=== PATIENT | female | born 1980 | race American Indian/Alaskan Native ===

== ENCOUNTER 2018-06-06 09:42 | Inpatient (IN) | payer OTHER ==
[2018-06-06 10:42] VITALS: BMI 40.3
[2018-06-06] MEDS ORDERED: Lactated Ringer's 1,000 ML IV ONE (10:42)
[2018-06-06] MEDS ORDERED: Oxytocin 30 UNITS in Sodium Chloride 0.9% 500 ML IV ONE (10:59)
[2018-06-06] MEDS: Lactated Ringer's 1,000 ML IV SCH ×2 (11:00→15:07)
[2018-06-06] MEDS ORDERED: Oxytocin 30 units/LR 500ML 30 U/500 ML BAG IV ONE (11:16)
[2018-06-06 11:28] LABS: BASO % 0.4 % (0.0-2.0); EOS # 0.1 K/uL (0.0-0.7); EOS % 0.7 % (0.0-4.0); HEMOGLOBIN 8.9 g/dL (12.0-16.0); LYMPH # 1.4 K/uL (1.0-4.3); LYMPH % 18.6 % (20.0-40.0); MEAN CELL VOLUME 67.2 fl (81.0-99.0); MEAN CORPUSCULAR HEMOGLOBIN 21.3 pg (27.0-31.0); MEAN CORPUSCULAR HGB CONC 31.6 g/dL (33.0-37.0); MEAN PLATELET VOLUME 7.9 fl (7.2-11.7); MONO # 0.6 K/uL (0.0-0.8); MONO % 8.4 % (0.0-10.0); NEUT # 5.4 K/uL (1.8-7.0); NEUT % 71.9 % (50.0-75.0); NRBC % 0.1 % (0.0-0.0); RBC 4.2 Mil/uL (3.80-5.20); RED CELL DISTRIBUTION WIDTH 16.6 % (11.5-14.5); WHITE BLOOD COUNT 7.5 K/uL (4.8-10.8)
[2018-06-06] MEDS ORDERED: OXYTOCIN/0.9 % NS 20 UNIT/1,000 ML BAG IV SCH ×2 (11:30→21:46)
[2018-06-06] MEDS ORDERED: Fentanyl/Bupivacaine HCl 250 ML EPI ONE (14:34)
[2018-06-06] MEDS ORDERED: Bupivacaine HCl 0.5% PF (30 ml) Inj ONE (18:31)
--- NOTE | 2018-06-06 18:31 | OBPN ---
Datetime: 06/06/2018 18:27 IP Progress Impression: Normal progression of labor IP Informed Consent Obtain: Vaginal Delivery IP Procedures: Sterile Vag Exam IP Progress Plan: Continue present management Membranes, Provider: Ruptured Contraction Comments Provider: q 2 mins FHR - Baseline A Provider: 150 IP Progress Note Comment: Patient uncomfortable, s/p epidural VE= [id number] mod gómez, +accels, early decels. Pitocin @ 6 mu/min A/P 1. Patient feeling increased pressure with contractions, will contact anesthesia about top off. co ntinue pitocin for augmentation 2. CEFM and TOCO Vital Signs Provider: Reviewed; Within Normal Limits NICHD Variability Prov Fetus A: Moderate 6-25bpm Dilatation, Provider: 8 Effacement, Provider: 100 Station, Provider: 1 NICHD Decel Fetus A IP Provider: Early Datetime: 06/06/2018 10:31 Pool Provider: Positive Nitrazine Provider: Positive Amniotic Fluid Color, Provider: Clear Presentation-Admit: Vertex NICHD Accel Fetus A IP Provider: [id number] FHR Category Provider Fetus A: Category I
--- NOTE | 2018-06-06 19:13 | OBDS ---
DELIVERY PERSONNEL Delivery Doctor: Donis WendieLeatha MD MATERNAL INFORMATION Delivery Anesthesia: Epidural Provider Comments: of live female over intact perineum, OA followed by shoulders and res t of infant atraumatic, 07/18, mouth and nose suctioned, cord clamped and cut, cord blood obtained, lynn centa delivered spontaneously, fundus firm, [id number], 2nd degree laceration repaired with 2-0 vicryl rapide, pt tolerated procedure well LABOR SUMMARY EDC: 06/10/2018 00:00 No. Babies in Womb: 1 Attempted: No Labor Anesthesia: Epidural LABOR INFORMATION Reason for Induction: Not Applicable Onset of Labor: 06/06/2018 14:00 Oxytocin: Augmentation Group B Beta Strep: Negative Antibiotics # of Doses: na Antibiotics Time of Last Dose: na Steroids Given: None Reason Steroids Not Administered: Not Applicable MEMBRANES Membranes Rupture Method: Spontaneous Rupture of Membranes: 06/06/2018 08:00 Amniotic Fluid Color: Clear Amniotic Fluid Amount: Small Amniotic Fluid Odor: Normal IDENTIFICATION/MEDS BABY A ID Band Number: [id number]
[2018-06-06] MEDS ORDERED: Acetaminophen-Codeine 300/30 mg Tab PO PRN (19:16)
[2018-06-06] MEDS ORDERED: Oxycodone/Acetaminophen 5/325 mg Tab PO PRN ×4 (19:16→21:46)
[2018-06-06] MEDS ORDERED: Benzocaine/Menthol SPRAY TOP PRN ×2 (19:16→21:46)
[2018-06-07 07:23] LABS: BASO % 0.3 % (0.0-2.0); EOS # 0.1 K/uL (0.0-0.7); EOS % 0.9 % (0.0-4.0); HEMOGLOBIN 8.1 g/dL (12.0-16.0); LYMPH # 1.6 K/uL (1.0-4.3); MEAN CELL VOLUME 67.2 fl (81.0-99.0); MEAN CORPUSCULAR HEMOGLOBIN 21.7 pg (27.0-31.0); MEAN CORPUSCULAR HGB CONC 32.3 g/dL (33.0-37.0); MEAN PLATELET VOLUME 7.6 fl (7.2-11.7); MONO # 0.8 K/uL (0.0-0.8); MONO % 8.7 % (0.0-10.0); NEUT % 73.1 % (50.0-75.0); RBC 3.72 Mil/uL (3.80-5.20); RED CELL DISTRIBUTION WIDTH 16.6 % (11.5-14.5); WHITE BLOOD COUNT 9.6 K/uL (4.8-10.8)
[2018-06-07] MEDS ORDERED: Multivitamin With Minerals Tab PO SCH (09:00)
[2018-06-07] MEDS ORDERED: Benzocaine/Menthol SPRAY TOP PRN (10:04)
[2018-06-07] MEDS: Multivitamin With Minerals Tab PO SCH (10:49)
--- NOTE | 2018-06-08 07:17 | OBPPN ---
Datetime: 06/07/2018 09:13 PP Pain Prov: Within normal limits PP Nausea Prov: Denies PP Flatus Prov: Yes PP Breasts Prov: Normal PP Heart Prov: Normal PP Lungs Prov: Normal PP Abdomen/Uterus Prov: Normal PP Extremities Prov: Normal PP Progress Prov: Normal PP Impression Prov: Normal progression PP Plan Prov: Continue present management PP Progress Note Prov: s: no c/o. pain controlled w/ meds. + i: s/p doing well anemia hgb 8.1 p: routine pp care d/c home on Fe planning on btl for contracept IP PP Procedures: None Vital Signs Provider PP: Within Normal Limits
--- NOTE | 2018-06-08 07:37 | OBDCSUM ---
Datetime: 06/08/2018 07:36 Discharged to, Provider: Home Follow up at, Provider: Dr. Barron Disch Instr Activity: Normal activity; May Shower Disch Instr Diet: Regular Discharge Instructions, Provider: Routine instructions given Discharge Diagnosis, Provider: Term Delivered Discharge Time: 06/08/2018 07:36 Follow up in weeks, Provider: 6 weeks Contraception discussed, Prov: No Disch Activity Restrictions: No exercising; No lifting; No sexual activity; Nothing in vagina - Inte rcourse, tampons, douche
--- NOTE | 2018-06-08 07:37 | OBPPN ---
Datetime: 06/08/2018 07:32 PP Pain Prov: Within normal limits PP Abdomen/Uterus Prov: Normal PP Lochia Prov: Normal PP Extremities Prov: Normal PP Progress Prov: Normal PP Impression Prov: Normal progression PP Plan Prov: Discharge PP Progress Note Prov: PPD 2 s/p , doing well, breast feeding Rx motrin given Rec OTC Slow Fe Discharge home today Vital Signs Provider PP: Reviewed
[2018-06-08] MEDS: Multivitamin With Minerals Tab PO SCH (08:29)
[2018-06-08 18:08] VITALS: BP 123/61; PULSE 84; RESP 18; TEMP 98.2; O2SAT 100
== END 2018-06-08 12:35 | disposition home or self-care (01) | DRG 775 ==
LOC: H.EROB2 09:42 → H.L&D 10:42 → H.OB/GYN 22:09
PROVIDERS: ADMIT Obstetrics & Gynecology; ATTEND Obstetrics & Gynecology
PROC: 10E0XZZ Delivery of Products of Conception, External Approach (ICD-10-PCS; principal; 2018-06-06)
PROC: 0KQM0ZZ Repair Perineum Muscle, Open Approach (ICD-10-PCS; 2018-06-06)
PROC: 4A1HXCZ Monitoring of Products of Conception, Cardiac Rate, External Approach (ICD-10-PCS; 2018-06-06)
DX: O70.1 Second degree perineal laceration during delivery (principal); O09.523 Supervision of elderly multigravida, third trimester; Z37.0 Single live birth; Z3A.39 39 weeks gestation of pregnancy

== ENCOUNTER 2018-06-14 21:57 | Emergency (ER) | payer OTHER ==
[2018-06-14 21:57] VITALS: BMI 40.3
[2018-06-14 22:15] VITALS: TEMP 98.5
[2018-06-14 23:33] LABS: BASO # 0.1 K/uL (0.0-0.2); BASO % 1.1 % (0.0-2.0); EOS # 0.1 K/uL (0.0-0.7); EOS % 1.3 % (0.0-4.0); HEMOGLOBIN 9.8 g/dL (12.0-16.0); LYMPH # 1.4 K/uL (1.0-4.3); LYMPH % 21.4 % (20.0-40.0); MEAN CORPUSCULAR HEMOGLOBIN 20.9 pg (27.0-31.0); MEAN CORPUSCULAR HGB CONC 30.8 g/dL (33.0-37.0); MEAN PLATELET VOLUME 7.7 fl (7.2-11.7); MONO # 0.4 K/uL (0.0-0.8); MONO % 6.7 % (0.0-10.0); NEUT # 4.4 K/uL (1.8-7.0); NEUT % 69.5 % (50.0-75.0); RBC 4.66 Mil/uL (3.80-5.20); RED CELL DISTRIBUTION WIDTH 16.9 % (11.5-14.5); WHITE BLOOD COUNT 6.3 K/uL (4.8-10.8)
[2018-06-14 23:38] LABS: SQUAMOUS EPITHIAL 1 /hpf (0-5); URINE BILIRUBIN NEGATIVE (NEGATIVE); URINE BLOOD MODERATE (NEGATIVE); URINE CLARITY SLIGHTY-CLOUDY (Clear); URINE COLOR YELLOW (YELLOW); URINE GLUCOSE (UA) NEG (Normal); URINE LEUKOCYTE ESTERASE TRACE Leu/uL (Negative); URINE PROTEIN 30 mg/dL (NEGATIVE); URINE UROBILINOGEN 0.2-1.0 mg/dL (0.2-1.0)
--- NOTE | 2018-06-14 23:41 | ED PDOC ---
HPI: General Adult Time Seen by Provider: 06/14/18 22:10 Chief Complaint (Nursing): Dizziness/Lightheaded Chief Complaint (Provider): High Blood Pressure History Per: Patient History/Exam Limitations: no limitations Onset/Duration Of Symptoms: Days (x1) Current Symptoms Are (Timing): Still Present Additional Complaint(s): Chichi Olmos is a 37 year old female with no past medical history who is presenting to the ED with complaints of high blood pressure and slight headache while using her computer, onset earlier today. Patient reports that she gave on 06/06 through normal spontaneous vaginal delivery and states that during her she had pre-eclampsia. She denies any abdominal pain, vomiting, or lower extremity swelling. PMD:obgyn Dr. Barron Past Medical History Reviewed: Historical Data, Nursing Documentation, Vital Signs Vital Signs: Last Vital Signs Temp 98.5 F 06/15/18 02:10 Pulse 86 06/15/18 02:10 Resp 16 06/15/18 02:10 BP 133/78 06/15/18 02:10 Pulse Ox 100 06/15/18 02:10 - Medical History PMH: No Chronic Diseases Denies: Depression, Diabetes, HTN - Surgical History Surgical History: Hernia Repair - Family History Family History: States: Unknown Family Hx - Social History Current smoker - smoking cessation education provided: No Alcohol: None Drugs: Denies - Home Medications Home Medications: Ambulatory Orders Medication Instructions Recorded Pnv with Ca,No.72/Iron/FA [Pnv 1 tab PO DAILY 06/06/18 Plus Multivit Tab] Benzocaine/Menthol MCC [Dermoplast] 1 sprays TOP Q6 PRN aero 06/08/18 Ferrous Sulfate [Slow Fe] 142 mg PO DAILY 60 Days tablet.er 06/08/18 Ibuprofen [Motrin Tab] 600 mg PO Q6 PRN #30 tab 06/08/18 Witch [place] [Tucks] 1 pad TP Q6 PRN pad 06/08/18 - Allergies Allergies/Adverse Reactions: Allergies Allergy/AdvReac Type Severity Reaction Status Date / Time cephalexin Allergy SWELLING Verified 06/14/18 22:12 Review of Systems ROS Statement: Except As Marked, All Systems Reviewed And Found Negative Constitutional: Positive for: Other (high blood pressure) Gastrointestinal: Negative for: Vomiting, Abdominal Pain Musculoskeletal: Negative for: Other (lower extremity swelling) Neurological: Positive for: Headache Physical Exam - Reviewed Nursing Documentation Reviewed: Yes Vital Signs Reviewed: Yes - Physical Exam Appears: Positive for: Well, Non-toxic, No Acute Distress Head Exam: Positive for: ATRAUMATIC, NORMAL INSPECTION, NORMOCEPHALIC Skin: Positive for: Normal Color, Warm, Dry Eye Exam: Positive for: EOMI, Normal appearance, PERRL ENT: Positive for: Normal ENT Inspection Neck: Positive for: Normal, Painless ROM Cardiovascular/Chest: Positive for: Regular Rate, Rhythm. Negative for: Murmur Respiratory: Positive for: Normal Breath Sounds. Negative for: Respiratory Distress Gastrointestinal/Abdominal: Positive for: Normal Exam, Soft. Negative for: Tenderness Back: Positive for: Normal Inspection. Negative for: L CVA Tenderness, R CVA Tenderness, Vertebral Tenderness Extremity: Positive for: Normal ROM. Negative for: Pedal Edema, Deformity, Swelling Neurologic/Psych: Positive for: Alert, executive recruiter II-XII (normal), Oriented, Gait ( stable). Negative for: Motor/Sensory Deficits, Aphasia, Facial Droop - Laboratory Results Result Diagrams: 06/14/18 23:20 06/14/18 23:20 - ECG O2 Sat by Pulse Oximetry: 99 (RA) Pulse Ox Interpretation: Normal Medical Decision Making Medical Decision Making: Time: 23:20 Impression/Differentials: high blood pressure, history of preeclampsia. Rule out pre-eclampsia. Plan: --CMP --CBC --Urine Culture --Urinalysis Hemoglobin level is 9.8 which is improved compared 8.1 on 06/07. 1:[address] 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 She does not think its pre-eclampsia or anything of immediate concern. Platelets, LFT's and blood pressure re not at concerning levels. Scribe Attestation: Documented by Hilaria Carnes, acting as a scribe for Argenis Valente MD. Provider Scribe Attestation: All medical record entries made by the Scribe were at my direction and personally dictated by me. I have reviewed the chart and agree that the record accurately reflects my personal performance of the history, physical exam, medical decision making, and the department course for this patient. I have also personally directed, reviewed, and agree with the discharge instructions and disposition. Disposition - Clinical Impression Clinical Impression: Dizziness - Patient ED Disposition Is Patient to be Admitted: No Counseled Patient/Family Regarding: Studies Performed, Diagnosis, Need For Followup - Disposition Disposition: Routine/Home Disposition Time: 02:00 Condition: IMPROVED Additional Instructions: follow up in Dr Barron office tomorrow for reevaluation return to the ED with any worsening or concerning symptoms Instructions: Dizziness, Nonvertigo, (DC) Forms: [employer] (Iranian)
[2018-06-14 23:43] LABS: ALB/GLOB RATIO 1.1 (1.0-2.1); ALBUMIN 3.5 g/dL (3.5-5.0); ALT/SGPT 30 U/L (9-52); AST/SGOT 28 U/L (14-36); BLOOD UREA NITROGEN 14 mg/dl (7-17); CALCIUM 8.8 mg/dL (8.4-10.2); GFR AFRICAN-AMERICAN > 60; GFR NON-AFRICAN AMERICAN > 60
[2018-06-15 02:16] VITALS: BP 133/78; PULSE 86; RESP 16
[2018-06-16 12:46] VITALS: O2SAT 99
== END 2018-06-15 02:16 | disposition home or self-care (01) ==
LOC: H.ER 21:57
DX: R42 Dizziness and giddiness (principal); I10 Essential (primary) hypertension